=== PATIENT | female | born 1990 | race Caucasian/White ===

== ENCOUNTER → 2017-09-22 | Outpatient (CLI) | payer SELFPAY ==
--- NOTE | 2017-09-22 15:20 | RADIOLOGY REPORT (SQ) ---
EXAM DESCRIPTION: U/S OB 14+ TRNABD 1GES W/O DOP COMPLETED DATE/TIME: 09/22/2017 2:23 pm REASON FOR STUDY: Z34.82 ENCOUNTER FOR SUPRVSN OF NORMAL , SECOND TRIMESTER Z34.82 ENCOUNT ER FOR SUPRVSN OF NORMAL , SECOND TRI COMPARISON: No previous this TECHNIQUE: Static and Dynamic grayscale imaging performed of gravid uterus using transabdominal appr oach. Additional selected color Doppler and spectral images recorded. All stored on PACS. LIMITATIONS: None. FINDINGS: EGA: 16 weeks 6 days GRISEL: 03/03/2018 EFW: 167 g grams PERCENTILE: Not applicable. Fetus less than or equal to 20 weeks gestation. VERENICE: Largest pocket 3 cm PLACENTA: Anterior, low-lying without previa GRADE: I PRESENTATION: Variable ANATOMY: HEART RATE: 141 beats per minute. FOUR CHAMBER HEART: Not well seen THREE VESSEL CORD: Yes. CORD INSERTION: Visualized. KIDNEYS AND BLADDER: Visualized. Appear normal. STOMACH: Visualized. Appears normal. SPINE: Normal as visualized. BRAIN AND LATERAL VENTRICLES: Visualized. Appear normal. OTHER: No other significant finding. MATERNAL ADNEXA: Maternal ovaries not visualized. CERVICAL LENGTH: 3.3 cm Closed. OTHER: No other significant finding. IMPRESSION: LIVING INTRAUTERINE . ESTIMATED GESTATIONAL AGE 16 weeks 6 days NO VISUALIZED ANOMALIES. Trimester of : Second trimester - 13 weeks 1 day to 27 weeks 6 days. TECHNICAL DOCUMENTATION: JOB ID: [id number] [employer]- All Rights Reserved
== END ==
LOC: RAD 13:40
PROVIDERS: ATTEND Nurse Practitioner Women's Health
DX: Z34.82 Encounter for supervision of other normal pregnancy, second trimester (principal)
CPT/HCPCS: 76805

== ENCOUNTER 2017-12-01 11:26 | Outpatient (CLI) | payer SELFPAY ==
[2017-12-01 12:03] LABS: APPEARANCE,URINE CLEAR; BILIRUBIN,URINE NEGATIVE (NEGATIVE); COLOR,URINE STRAW; GLUCOSE, URINE NEGATIVE (NEGATIVE); KETONES,URINE NEGATIVE (NEGATIVE); LEUKOCYTE ESTERASE,URINE TRACE (NEGATIVE); NITRITE,URINE NEGATIVE (NEGATIVE); PROTEIN,URINE NEGATIVE (NEGATIVE); URINE SPECIFIC GRAVITY 1.003; UROBILINOGEN,URINE NEGATIVE mg/dL (<2.0)
[2017-12-01 12:20] LABS: URINE AMPHETAMINES SCREEN NEGATIVE; URINE BARBITURATES SCREEN NEGATIVE; URINE BENZODIAZEPINES SCREEN NEGATIVE; URINE COCAINE SCREEN NEGATIVE; URINE MARIJUANA (THC) SCREEN NEGATIVE; URINE METHADONE SCREEN NEGATIVE; URINE PHENCYCLIDINE SCREEN NEGATIVE
[2017-12-01 12:38] LABS: AMNISURE (ROM) NEGATIVE (NEGATIVE)
--- NOTE | 2017-12-01 14:52 | L&D Progress Notes ---
PROGRESS NOTES Datetime Report Generated by CPN: 12/01/2017 14:52 PROGRESS NOTE Comment: pt came in for labor check for spotting when voiding and irregular crampin, no uc's, FHT nl for gestational age, abd soft, waiting for sono report SIGNATURE SIGNATURE: [id number] Assignment: Higinio MD Gume Signature: with User ID: [email or web address] : with User ID: [email or web address]
--- NOTE | 2017-12-01 14:56 | RADIOLOGY REPORT (SQ) ---
EXAM DESCRIPTION: U/S OB LIMITED COMPLETED DATE/TIME: 12/01/2017 2:36 pm REASON FOR STUDY: 28+5 weeks,spotting,cramping-cervical, placenta lo COMPARISON: OB ultrasound 09/22/2017 TECHNIQUE: Limited transabdominal grayscale ultrasound for evaluation of specific requested obstetri nani parameters. LIMITATIONS: None. FINDINGS: CERVICAL LENGTH: 6 cm in length Closed. FHR: 153 beats per minute beats per minute. PRESENTATION: Transverse OTHER: Largest pocket of amniotic fluid 5.5 cm Placenta anterior, grade 1. No abruption or previa IMPRESSION: LIMITED OBSTETRICAL ULTRASOUND WITH MEASURED PARAMETERS DELINEATED ABOVE. Trimester of : Second trimester - 13 weeks 1 day to 27 weeks 6 days. TECHNICAL DOCUMENTATION: JOB ID: [id number] [employer]- All Rights Reserved
--- NOTE | 2017-12-01 15:07 | L&D Progress Notes ---
PROGRESS NOTES Datetime Report Generated by CPN: 12/01/2017 15:06 PROGRESS NOTE Comment: Had yeast infection x 2, took Monistat OTC, placenta anterior. cx 6.3 Rx given for maternity belt and Terazol, F/U at [facility] or [facility] when insurance is restarted Rev S_S to report FETUS C SIGNATURE: [id number] Assignment: Higinio Dunaway MD Signature: with User ID: [email or web address] : with User ID: [email or web address]
== END 2017-12-01 15:09 | disposition home or self-care (01) ==
LOC: LC 11:26
PROVIDERS: ATTEND Obstetrics & Gynecology Gynecology
PROC: 4A1HXCZ Monitoring of Products of Conception, Cardiac Rate, External Approach (ICD-10-PCS; principal; 2017-12-01)
DX: O26.853 Spotting complicating pregnancy, third trimester (principal); O99.89 Other specified diseases and conditions complicating pregnancy, childbirth and the puerperium; N94.89 Other specified conditions associated with female genital organs and menstrual cycle; Z3A.28 28 weeks gestation of pregnancy
CPT/HCPCS: 76815; 80307; 81001; 84112

== ENCOUNTER 2018-01-25 16:04 | Outpatient (CLI) | payer SELFPAY ==
[2018-01-25 17:02] LABS: APPEARANCE,URINE CLEAR; BILIRUBIN,URINE NEGATIVE (NEGATIVE); COLOR,URINE YELLOW; GLUCOSE, URINE NEGATIVE (NEGATIVE); KETONES,URINE NEGATIVE (NEGATIVE); LEUKOCYTE ESTERASE,URINE SMALL (NEGATIVE); NITRITE,URINE NEGATIVE (NEGATIVE); PROTEIN,URINE NEGATIVE (NEGATIVE); URINE SPECIFIC GRAVITY 1.011; UROBILINOGEN,URINE NEGATIVE mg/dL (<2.0)
[2018-01-25 17:17] LABS: URINE AMPHETAMINES SCREEN NEGATIVE; URINE BARBITURATES SCREEN NEGATIVE; URINE BENZODIAZEPINES SCREEN NEGATIVE; URINE COCAINE SCREEN NEGATIVE; URINE MARIJUANA (THC) SCREEN NEGATIVE; URINE METHADONE SCREEN NEGATIVE; URINE PHENCYCLIDINE SCREEN NEGATIVE
[2018-01-25 17:34] LABS: UR PRO/CREAT RATIO RESULT 0.2 mg/mg (0.0-0.2); URINE CREATININE 52.1 mg/dL (16-327); URINE PROTEIN 11.6 mg/dL (<12)
[2018-01-25 17:43] LABS: ABSOLUTE EOSINOPHILS # (AUTO) 0.2 10^3/uL (0.0-0.6); ABSOLUTE LYMPHOCYTES (AUTO) 2.5 10^3/uL (0.5-4.7); ABSOLUTE MONOCYTES (AUTO) 1.3 10^3/uL (0.1-1.4); ABSOLUTE NEUT (AUTO) 11.4 10^3/uL (1.7-8.2); BASOPHILS % (AUTO) 0.2 % (0-2); EOSINOPHILS % (AUTO) 1.4 % (0-6); HEMATOCRIT 28.2 % (36.0-47.0); HEMOGLOBIN 9.3 g/dL (12.0-15.5); MEAN CORPUSCULAR HEMOGLOBIN 26.1 pg (27.0-33.4); MEAN CORPUSCULAR VOLUME 79 fl (80-97); MONOCYTES % (AUTO) 8.5 % (3-13); PLATELET COUNT 232 10^3/uL (150-450); RED BLOOD COUNT 3.58 10^6/uL (3.72-5.28); RED CELL DISTRIBUTION WIDTH 15.5 % (11.5-14.0); SEGMENTED NEUTROPHILS % (AUTO) 73.9 % (42-78); TOTAL CELLS COUNTED % (AUTO) 100 %; WHITE BLOOD COUNT 15.4 10^3/uL (4.0-10.5)
[2018-01-25 18:07] LABS: ALANINE AMINOTRANSFERASE 27 U/L (9-52); ALBUMIN 3.5 g/dL (3.5-5.0); ALKALINE PHOSPHATASE 133 U/L (38-126); ANION GAP 8 (5-19); ASPARTATE AMINO TRANSFERASE 22 U/L (14-36); BILIRUBIN,DIRECT 0.1 mg/dL (0.0-0.4); BILIRUBIN,TOTAL 0.2 mg/dL (0.2-1.3); BLOOD UREA NITROGEN 6 mg/dL (7-20); CALCIUM 9.1 mg/dL (8.4-10.2); CARBON DIOXIDE 25 mmol/L (22-30); CHLORIDE 103 mmol/L (98-107); GLUCOSE 81 mg/dL (75-110); LDH 515 U/L (313-618); SODIUM 136.1 mmol/L (137-145); TOTAL PROTEIN 6.1 g/dL (6.3-8.2); URIC ACID 4.3 mg/dL (2.5-6.2)
== END 2018-01-25 18:21 | disposition home or self-care (01) ==
LOC: LC 16:04
PROVIDERS: ATTEND Obstetrics & Gynecology
DX: O47.03 False labor before 37 completed weeks of gestation, third trimester (principal); Z3A.36 36 weeks gestation of pregnancy
CPT/HCPCS: 36415; 59025; 80053; 80307; 81001; 82570; 83615; 84156; 84550; 85025

== ENCOUNTER 2018-02-01 11:49 | Outpatient (CLI) | payer SELFPAY ==
--- NOTE | 2018-02-01 11:56 | Non Stress Test Report ---
Non Stress Test Datetime Report Generated by CPN: 02/01/2018 11:55 DEMOGRAPHIC EGA NST: 36.4 INDICATION Indication for Study: Ordered by Provider MONITORING Monitor Explained: Monitor Explained; Test Explained; Patient Verbalized Understanding Time on Monitor: 01/25/2018 16:17 Time off Monitor: 01/25/2018 17:31 NST Duration: 74 NST INTERVENTIONS NST Interventions: PO Hydration; Reposition Patient Physician Notified NST: H.Michael, CNM BABY A: [id number] BABY A Movement : Present Contraction Frequency : x1 FHR Baseline : 145 Accelerations : 15X15 Decelerations : None Variability : Moderate 6-25bpm NST Review: Meets Criteria for Reactive NST NST Review and Verified By : KRISTINA Chaves Results: Reactive NST REPORT Report Trigger: Send Report
[2018-02-01 12:29] LABS: APPEARANCE,URINE CLEAR; BILIRUBIN,URINE NEGATIVE (NEGATIVE); COLOR,URINE YELLOW; GLUCOSE, URINE NEGATIVE (NEGATIVE); KETONES,URINE NEGATIVE (NEGATIVE); LEUKOCYTE ESTERASE,URINE SMALL (NEGATIVE); NITRITE,URINE NEGATIVE (NEGATIVE); PROTEIN,URINE NEGATIVE (NEGATIVE); URINE SPECIFIC GRAVITY 1.009; UROBILINOGEN,URINE NEGATIVE mg/dL (<2.0)
[2018-02-01 12:42] LABS: URINE AMPHETAMINES SCREEN NEGATIVE; URINE BARBITURATES SCREEN NEGATIVE; URINE BENZODIAZEPINES SCREEN NEGATIVE; URINE COCAINE SCREEN NEGATIVE; URINE MARIJUANA (THC) SCREEN NEGATIVE; URINE METHADONE SCREEN NEGATIVE; URINE PHENCYCLIDINE SCREEN NEGATIVE
[2018-02-01 12:47] LABS: UR PRO/CREAT RATIO RESULT 0.3 mg/mg (0.0-0.2); URINE CREATININE 41.1 mg/dL (16-327); URINE PROTEIN 12.2 mg/dL (<12)
[2018-02-01 12:54] LABS: ABSOLUTE EOSINOPHILS # (AUTO) 0.2 10^3/uL (0.0-0.6); ABSOLUTE LYMPHOCYTES (AUTO) 2.1 10^3/uL (0.5-4.7); ABSOLUTE MONOCYTES (AUTO) 0.7 10^3/uL (0.1-1.4); ABSOLUTE NEUT (AUTO) 10.9 10^3/uL (1.7-8.2); BASOPHILS % (AUTO) 0.3 % (0-2); EOSINOPHILS % (AUTO) 1.3 % (0-6); HEMOGLOBIN 8.8 g/dL (12.0-15.5); MEAN CORPUSCULAR HEMOGLOBIN 25.6 pg (27.0-33.4); MEAN CORPUSCULAR HGB CONC 32.6 g/dL (32.0-36.0); MEAN CORPUSCULAR VOLUME 79 fl (80-97); MONOCYTES % (AUTO) 5.2 % (3-13); PLATELET COUNT 228 10^3/uL (150-450); RED BLOOD COUNT 3.44 10^6/uL (3.72-5.28); RED CELL DISTRIBUTION WIDTH 15.7 % (11.5-14.0); SEGMENTED NEUTROPHILS % (AUTO) 78.2 % (42-78); TOTAL CELLS COUNTED % (AUTO) 100 %; WHITE BLOOD COUNT 13.9 10^3/uL (4.0-10.5)
[2018-02-01 13:21] LABS: ALANINE AMINOTRANSFERASE 23 U/L (9-52); ALBUMIN 3.2 g/dL (3.5-5.0); ALKALINE PHOSPHATASE 137 U/L (38-126); ANION GAP 10 (5-19); ASPARTATE AMINO TRANSFERASE 23 U/L (14-36); BILIRUBIN,DIRECT 0.2 mg/dL (0.0-0.4); BILIRUBIN,TOTAL 0.2 mg/dL (0.2-1.3); BLOOD UREA NITROGEN 5 mg/dL (7-20); CALCIUM 8.9 mg/dL (8.4-10.2); CARBON DIOXIDE 24 mmol/L (22-30); CHLORIDE 104 mmol/L (98-107); GLUCOSE 104 mg/dL (75-110); LDH 465 U/L (313-618); POTASSIUM 3.9 mmol/L (3.6-5.0); SODIUM 138.1 mmol/L (137-145); TOTAL PROTEIN 5.9 g/dL (6.3-8.2); URIC ACID 4.8 mg/dL (2.5-6.2)
--- NOTE | 2018-02-01 13:48 | Non Stress Test Report ---
Non Stress Test Datetime Report Generated by CPN: 02/01/2018 13:47 DEMOGRAPHIC EGA NST: 37.4 INDICATION Indication for Study: Ordered by Provider MONITORING Monitor Explained: Monitor Explained; Test Explained; Patient Verbalized Understanding Time on Monitor: 02/01/2018 12:05 Time off Monitor: 02/01/2018 13:41 NST Duration: 96 NST INTERVENTIONS NST Interventions: PO Hydration Physician Notified NST: Dr. Kenny BABY A Movement : Present Contraction Frequency : none FHR Baseline : 135 Accelerations : 15X15 Decelerations : None Variability : Moderate 6-25bpm NST Review: Meets Criteria for Reactive NST NST Review and Verified By : KRISTINA ChavesT Results: Reactive NST REPORT Report Trigger: Send Report
== END 2018-02-01 13:55 | disposition home or self-care (01) ==
LOC: LC 11:49
PROVIDERS: ATTEND Obstetrics & Gynecology
PROC: 4A1HXCZ Monitoring of Products of Conception, Cardiac Rate, External Approach (ICD-10-PCS; principal; 2018-02-01)
DX: O16.3 Unspecified maternal hypertension, third trimester (principal); O99.413 Diseases of the circulatory system complicating pregnancy, third trimester; I47.1 Supraventricular tachycardia; Z3A.37 37 weeks gestation of pregnancy
CPT/HCPCS: 36415; 59025; 80053; 80307; 81001; 82570; 83615; 84156; 84550; 85025

== ENCOUNTER 2018-02-02 13:44 | Outpatient (CLI) | payer SELFPAY ==
[2018-02-02 14:49] LABS: 24 HOUR URINE PROTEIN RESULT 412 mg/day (42-225); URINE PROTEIN 14.7 mg/dL (<12)
--- NOTE | 2018-02-02 16:30 | Non Stress Test Report ---
Non Stress Test Datetime Report Generated by CPN: 02/02/2018 16:29 DEMOGRAPHIC EGA NST: 37.5 INDICATION Indication for Study: Ordered by Provider MONITORING Monitor Explained: Monitor Explained; Test Explained; Patient Verbalized Understanding Time on Monitor: 02/02/2018 13:53 Time off Monitor: 02/02/2018 15:42 NST Duration: 109 NST INTERVENTIONS NST Interventions: PO Hydration; Reposition Patient Physician Notified NST: C.Ferrell, CNM BABY A: [id number] BABY A Movement : Present Contraction Frequency : x1 FHR Baseline : 135 Accelerations : 15X15 Decelerations : None Variability : Moderate 6-25bpm NST Review: Meets Criteria for Reactive NST NST Review and Verified By : KRISTINA Desai Results: Reactive NST REPORT Report Trigger: Send Report
--- NOTE | 2018-02-02 18:46 | PDOC CONSULTATION ---
Consultation Consult Date: 02/02/18 Consult reason:: Tachycardia and history of SVT History of Present Illness Admission Date/PCP: BLANCA SALTER MD Patient complains of: Tachycardia History of Present Illness: JENISE SOARES is a 27 year old female, who claims to be 37 weeks , was admitted to labor and delivery for observation and possible inducing labor. She complained of having tachycardia. Her heart rate was in the 120s. Patient describes history of SVT in the past. She was placed on metoprolol succinate with total dose of 50 mg which she tells me that she tapered herself off. Patient denies any history of ablation. Patient has 5 other live deliveries without any complications except for gestational diabetes and possible mild hypertension in 2 of the live births. Patient describes having mild gestational diabetes during her current . She also describes intermittent high blood pressure reading. Patient tells me that she had some leakage of protein. However I was told by the [employer] physician that it was minimal at 400 mg in 24 hours therefore not considered significant. Patient is no longer being induced and is likely to be discharged. Their concern was whether patient would need to be monitored during delivery. It was felt that patient will benefit from cardiac monitoring during delivery as delivery would be a stress and any SVT if it occurs would need to be treated expeditiously. Past Medical History Pulmonary Medical History: Reports: Asthma Past Surgical History Past Surgical History: Reports: Orthopedic Surgery - rigth leg Social History Information Source: Patient Smoking Status: Never Smoker - Advance Directive Resuscitation Status: Full Code Surrogate healthcare decision maker:: Patient's is the surrogate decision-maker Family History Family History: Reviewed & Not Pertinent. denies: CAD Parental Family History Reviewed: Yes Children Family History Reviewed: Yes Sibling(s) Family History Reviewed.: Yes - No family history of premature coronary artery disease or sudden cardiac in immediate family members Medication/Allergy Home Medications: Vit No.129/Iron/Folic [ One Daily Tablet] 1 tab PO DAILY Metoprolol/Hydrochlorothiazide [Lopressor HCT 50-25 Tablet] 1 each PO DAILY 08/12 Allergies/Adverse Reactions: Penicillins Allergy (Severe, Verified 02/01/18 12:40) Rash, swelling Review of Systems Review of Systems: Please see history of present illness and past medical history as wall. Constitutional: No fever or chills reported. Head : No recent chronic headaches, recent head injury. Eyes: No recent eye pain, diplopia, redness, discharge, acute visual changes. Ears: No recent chronic ear pain, acute hearing loss, ear discharge. Oral cavity: No recent ulcerations, bleeding, oral cavity discomfort. Neck: No recent acute neck pain reported. Hematologic: No recent easy bruising or bleeding or hematologic malignancy reported. Lymphatic: No recent lymphatic malignancy, chronic lymphadenopathy reported yet Cardiovascular system review: See history of present illness. History of palpitations as noted above along with SVT. No history of syncope or near syncope. No chest pains. Respiratory system review: No recent chronic cough, hemoptysis, blood clots in the lungs reported. Mild Shortness of breath on exertion Gastrointestinal system review: Negative for any recent acute or chronic abdominal pain, hematemesis, melena, recent change in bowel habits. Genitourinary system review: No recent acute or chronic hematuria, flank pain, UTI etc. reported. as noted above. Skin system review: Negative for any recent abnormal bruising, no rash, no pruritus reported. Neurologic: No prior history of strokes, mini strokes, seizure disorder. Psychologic: No history of major psychosis or major depression reported. Musculoskeletal: Minor aches and pains reported. No acute joint swelling reported. Endocrine: No recent polyuria, polydipsia, recent heat or cold intolerance. Physical Exam Vital Signs: Intake & Output 02/01/18 02/02/18 02/03/18 06:59 06:59 06:59 Weight 86.9 kg Exam: GENERAL: well-nourished and in no acute distress. Alert and oriented x3 HEAD: Atraumatic, normocephalic. EYES: Pupils equal round and reactive to light, extraocular movements intact, sclera anicteric, conjunctiva are normal. ENT: TMs normal, nares patent, oropharynx clear without exudates. Moist mucous membranes. No oral ulcerations or bleeding gums noted NECK: supple without lymphadenopathy. Trachea is central. No cervical or axillary lymphadenopathy noted. Carotids are 2+, JVD WNL LUNGS: Respiration seems nonlabored, no significant accessory muscle action noted. Breath sounds clear to auscultation bilaterally and equal noted. No wheezes rales or rhonchi noted. No significant dullness noted on percussion. CHEST: Palpation of the chest wall shows no significant chest wall tenderness. No other significant abnormalities noted. HEART: [place] [employer], No PSH, 1/6 GIGI aortic area, 1/6 montemayor systolic murmur mitral area, no rubs, no gallops. ABDOMEN: Consistent with 37 weeks of . Soft, no significant tenderness appreciated, normoactive bowel sounds. No guarding, no rebound. No rigidity noted . EXTREMITIES: Pedal pulses are 2+, no calf tenderness noted. No clubbing or cyanosis. negative pedal edema noted. 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 NEUROLOGICAL: Focused neurological exam showed no significant neurologic deficit. Normal speech, no focal weakness appreciated. PSYCH: Normal mood, normal affect. Judgment and insight within normal limits. SKIN: No significant ecchymosis, skin is noted to be warm. MUSCULOSKELETAL EXAM: No significant acute joint swelling noted. Results Laboratory Results: 02/01/18 13:30 Ur 24 Hour Volume 2800 Ur Total Protein 24 Hr 412 H Assessment & Plan - Diagnosis (1) Supraventricular tachycardia Is this a current diagnosis for this admission?: Yes (2) Gestational hypertension Qualifiers: Trimester: third trimester Qualified Code(s): O13.3 - Gestational [ -induced] hypertension without significant proteinuria, third trimester Is this a current diagnosis for this admission?: Yes (3) Gestational diabetes Qualifiers: Trimester: third trimester Is this a current diagnosis for this admission?: Yes - Notes Notes: Patient gives history of supraventricular tachycardia, currently noted to be in regular rhythm. No EKGs available for review but will order one. Patient will also benefit from a 2D echo if can be obtained prior to discharge or otherwise can be obtained as an outpatient. At this point recommend that patient be placed on metoprolol succinate 25 mg p.o. twice daily. I would recommend that patient have cardiac monitoring during labor and delivery as this is a stress on the heart and could as well precipitated a SVT episode which may need to be taken care of expeditiously. This was related to [employer] physician. If SVT happens, adenosine could be used or IV metoprolol, IV digoxin could also be used if needed. As usual I thank very much for the kind consultation. - Time Time Spent: 30 to 50 Minutes Medications reviewed and adjusted accordingly: Yes
== END 2018-02-02 17:06 | disposition home or self-care (01) ==
LOC: LC 13:44
PROVIDERS: ATTEND Obstetrics & Gynecology
PROC: 4A1HXCZ Monitoring of Products of Conception, Cardiac Rate, External Approach (ICD-10-PCS; principal; 2018-02-02)
DX: O12.13 Gestational proteinuria, third trimester (principal); Z3A.37 37 weeks gestation of pregnancy
CPT/HCPCS: 59025; 84156

== ENCOUNTER 2019-01-01 21:35 | Emergency (ER) | payer MEDICAID ==
--- NOTE | 2019-01-01 22:18 | EKG REPORT ---
SEVERITY:- NORMAL ECG - SINUS RHYTHM : Confirmed by: Araceli Montanez MD 01-Jan-2019 22:17:34
--- NOTE | 2019-01-01 22:48 | ER Document Report ---
ED General - General Chief Complaint: Chest Pain Stated Complaint: CHEST PINCHING Time Seen by Provider: 01/01/19 22:12 Primary Care Provider: BLANCA SALTER MD [Primary Care Provider] - Follow up as needed Notes: Patient is a 28-year-old female presents with complaint of pleuritic chest pain started tonight. She is 29 weeks . Patient says it is mild but it does hurt whenever she takes a deep breath. Is pinpoint over a single location. Also hurts to cough. No recent leg pain or leg swelling. No history of DVT or PE. She does have a history of SVT. No recent runs of SVT. She takes metoprolol as well as aspirin daily. No fevers. No other complaints at this time. TRAVEL OUTSIDE OF THE [place] IN LAST 30 DAYS: No - Related Data Allergies/Adverse Reactions: Penicillins Allergy (Severe, Verified 01/01/19 21:38) Rash, swelling Past Medical History - Social History Smoking Status: Never Smoker Chew tobacco use (# tins/day): No Frequency of alcohol use: None Drug Abuse: None Family History: Reviewed & Not Pertinent. denies: CAD Patient has suicidal ideation: No Patient has homicidal ideation: No Pulmonary Medical History: Reports: Hx Asthma Renal/ Medical History: Denies: Hx Peritoneal Dialysis Past Surgical History: Reports: Hx Orthopedic Surgery - right aka - Immunizations Hx Pneumococcal Vaccination: 09/05/12 Review of Systems - Review of Systems Notes: My Normal Review Basic REVIEW OF SYSTEMS: CONSTITUTIONAL : Denies fever, chills, or sweats. Denies recent illness. EENT: Denies eye, ear, throat, or mouth pain or symptoms. Denies nasal or sinus congestion. CARDIOVASCULAR: Pleuritic chest pain RESPIRATORY: No difficulty breathing. GASTROINTESTINAL: Denies abdominal pain. Denies nausea, vomiting, or diarrhea. GENITOURINARY: Denies difficulty urinating, painful urination, burning, frequency, or blood in urine. FEMALE GENITOURINARY: Denies vaginal bleeding, abnormal or irregular periods. LMP: Currently MUSCULOSKELETAL: Denies neck or back pain or joint pain or swelling. SKIN: Denies rash or skin lesions. HEMATOLOGIC : Denies easy bruising or bleeding. NEUROLOGICAL: Denies altered mental status or loss of consciousness. Denies headache. Denies weakness or paralysis or loss of use of either side. Denies problems with gait or speech. Denies sensory or motor loss. ALL OTHER SYSTEMS REVIEWED AND NEGATIVE. Physical Exam - Vital signs Vitals: Temp Pulse Resp BP Pulse Ox 98.1 F 87 17 134/66 H 100 01/01/19 21:51 01/01/19 21:51 01/01/19 21:51 01/01/19 21:51 01/01/19 21:51 - Notes Notes: General Appearance: Well nourished, alert, cooperative, no acute distress, no obvious discomfort. Well-appearing. Vitals: reviewed, See vital signs table. Head: no swelling or tenderness to the head Eyes: PERRL, EOMI, Conjuctiva clear Mouth: No decreasd moisture Lungs: No wheezing, No rales, No rhonci, No accessory muscle use, good air exchange bilaterally. Heart: Normal rate, Regular rythm, No murmur, no rub Abdomen: Normal BS, soft, No rigidity, No abdominal tenderness, No guarding, no rebound, no abdominal masses, no organomegaly Extremities: Patient has amputated right lower extremity., good pulses in all extremities, no swelling or tenderness in the extremities, trace edema left lower extremity. No pain to palpation of left lower leg.. Skin: warm, dry, appropriate color, no rash Neuro: speech clear, oriented x 3, normal affect, responds appropriately to questions. Course - Re-evaluation Re-evalutation: 01/01/19 23:21 Unfortunately patient's d-dimer is positive. She has pleuritic chest pain during without another obvious cause. Pain is not reproducible palpation. I therefore talked her back and forth with CTA of the chest. I talked about the radiation risk including radiation to breast tissue during . She is understanding of this and agreeable to go forward with the CT scan. 01/02/19 00:13 Contrast bolus of the CTA was suboptimal. Radiologist that they can rule out large PE. Cannot rule out a small subsegmental PE at this time. I did review the images myself. I do not see evidence of a PE either. I talked to the patient at length. Currently her vital signs are completely normal and she looks well. I informed her she has no evidence of large PE on CT scan. Informed her that smaller for emboli or controversial treatment and I do not feel that the benefits of doing further radiological studies out weigh the risks of recurrent radiation to her breast tissue being that she is in third trimester . Recommend that she follow-up with her machine i trimmer this coming week but have a low threshold to return to ER if she starts having severe chest pain, difficulty breathing, or feels that she is worsening any way. Patient agrees with this plan and will be discharged home and agrees with close follow-up precautions. Dictation of this chart was performed using voice recognition software; therefore, there may be some unintended grammatical errors. - Vital Signs Vital signs: Temp Pulse Resp BP Pulse Ox 98.1 F 87 17 134/66 H 100 01/01/19 21:51 01/01/19 21:51 01/01/19 21:51 01/01/19 21:51 01/01/19 21:51 - Laboratory Result Diagrams: 01/01/19 22:41 01/01/19 22:41 Laboratory results interpreted by me: 01/01/19 01/01/19 01/01/19 22:41 22:41 22:41 WBC 11.5 H Hgb 11.2 L Hct 32.6 L Absolute Neutrophils 8.7 H D-Dimer 0.82 H Sodium 135.3 L Creatinine 0.50 L - EKG Interpretation by Me Additional EKG results interpreted by me: 01/01/19 22:47 EKG is reviewed and interpreted by me. EKG shows sinus rhythm with a rate of [address] segment elevation or depression. T wave inversions in lead III. No further T wave inversions. NM interval, QRS duration, QTc intervals are within normal range. Old EKG for comparison is from September 03, 2017. Discharge - Discharge Clinical Impression: Chest pain Qualifiers: Chest pain type: unspecified Qualified Code(s): R07.9 - Chest pain, unspecified Condition: Good Disposition: HOME, SELF-CARE Additional Instructions: Your CT scan did not show evidence of a large or concerning blood clot in your lungs. There is always a possibility of a small blood clot, but this is less likely and your heart rate and oxygenation are normal and therefore the risks of further radiation studies do not out weigh the benefits. At this time I feel you are safe to be discharged home with close follow up with you OB doctor this week. Please have a low threshold to return to the ER if you have difficulty breathing, fast heart rate, worsening pain, or feel unwell. Referrals: BLANCA SALTER MD [Primary Care Provider] - Follow up in 3-5 days
[2019-01-01 22:54] LABS: ABSOLUTE EOSINOPHILS # (AUTO) 0.2 10^3/uL (0.0-0.6); ABSOLUTE MONOCYTES (AUTO) 0.6 10^3/uL (0.1-1.4); ABSOLUTE NEUT (AUTO) 8.7 10^3/uL (1.7-8.2); BASOPHILS % (AUTO) 0.2 % (0-2); EOSINOPHILS % (AUTO) 1.9 % (0-6); HEMATOCRIT 32.6 % (36.0-47.0); HEMOGLOBIN 11.2 g/dL (12.0-15.5); LYMPHOCYTES % (AUTO) 17.2 % (13-45); MEAN CORPUSCULAR HEMOGLOBIN 28.8 pg (27.0-33.4); MEAN CORPUSCULAR HGB CONC 34.3 g/dL (32.0-36.0); MEAN CORPUSCULAR VOLUME 84 fl (80-97); MONOCYTES % (AUTO) 5.4 % (3-13); PLATELET COUNT 226 10^3/uL (150-450); RED BLOOD COUNT 3.88 10^6/uL (3.72-5.28); RED CELL DISTRIBUTION WIDTH 13.8 % (11.5-14.0); SEGMENTED NEUTROPHILS % (AUTO) 75.3 % (42-78); TOTAL CELLS COUNTED % (AUTO) 100 %; WHITE BLOOD COUNT 11.5 10^3/uL (4.0-10.5)
[2019-01-01 23:14] LABS: APPEARANCE,URINE CLEAR; BILIRUBIN,URINE NEGATIVE (NEGATIVE); COLOR,URINE STRAW; GLUCOSE, URINE NEGATIVE (NEGATIVE); KETONES,URINE NEGATIVE (NEGATIVE); LEUKOCYTE ESTERASE,URINE NEGATIVE (NEGATIVE); NITRITE,URINE NEGATIVE (NEGATIVE); PROTEIN,URINE NEGATIVE (NEGATIVE); URINE SPECIFIC GRAVITY 1.009; UROBILINOGEN,URINE NEGATIVE mg/dL (<2.0)
[2019-01-01 23:14] LABS: ALANINE AMINOTRANSFERASE 25 U/L (9-52); ALBUMIN 3.9 g/dL (3.5-5.0); ALKALINE PHOSPHATASE 91 U/L (38-126); ANION GAP 8 (5-19); ASPARTATE AMINO TRANSFERASE 23 U/L (14-36); BILIRUBIN,DIRECT 0.1 mg/dL (0.0-0.4); BILIRUBIN,TOTAL 0.2 mg/dL (0.2-1.3); BLOOD UREA NITROGEN 9 mg/dL (7-20); CALCIUM 9.8 mg/dL (8.4-10.2); CARBON DIOXIDE 26 mmol/L (22-30); CHLORIDE 101 mmol/L (98-107); GLUCOSE 85 mg/dL (75-110); POTASSIUM 3.9 mmol/L (3.6-5.0); SODIUM 135.3 mmol/L (137-145); TOTAL PROTEIN 6.8 g/dL (6.3-8.2)
[2019-01-01] MEDS ORDERED: NORMAL SALINE 1000 ML 1,000 ML IV ONE (23:16)
--- NOTE | 2019-01-01 23:24 | RADIOLOGY REPORT (SQ) ---
EXAM DESCRIPTION: XR CHEST 1 VIEW COMPLETED DATE/TME: 01/01/2019 22:21 CLINICAL HISTORY: 28 years, Female, cp COMPARISON: None. NUMBER OF VIEWS: 1 TECHNIQUE: Portable chest LIMITATIONS: None. FINDINGS: Heart size is normal. Lungs are clear. No pneumothorax IMPRESSION: Negative chest copyright 2011 [employer]- All Rights Reserved
--- NOTE | 2019-01-01 23:57 | RADIOLOGY REPORT (SQ) ---
EXAM DESCRIPTION: CT CHEST ANGIOGRAPHY WITHOUT THEN WITH IV CONTRAST COMPLETED DATE/TME: 01/01/2019 23:16 CLINICAL HISTORY: 28 years, Female, pleuritic chest pain COMPARISON: None. TECHNIQUE: 507 Images stored on PACS. All CT scanners at this facility use dose modulation, iterative reconstruction, and/or weight based dosing when appropriate to reduce radiation dose to as low as reasonably achievable (ALARA). Axial CTA images with coronal and sagittal MIPS reconstructions [facility]: Dose Right [facility]: CareDose [facility]: Dose Right [facility]: Teradose 4D [facility]: [employer] LIMITATIONS: None. FINDINGS: Nearly nondiagnostic exam due to contrast bolus. No large or central pulmonary most. Evaluation of the remaining pulmonary arterial tree is nondiagnostic. Negative for thoracic aortic aneurysm or dissection. Heart and pericardium are unremarkable. No mediastinal or hilar adenopathy. Limited evaluation of the upper abdomen shows splenomegaly at 14 cm. Postcholecystectomy changes. Osseous structures are grossly intact. No pneumothorax. The visualized airways are patent. Lungs are clear IMPRESSION: Significantly suboptimal contrast bolus limits the exam. No large or central PE. Negative for thoracic aortic aneurysm or dissection. The lungs are clear TECHNICAL DOCUMENTATION: Quality ID # [id number]: Final reports with documentation of one or more dose reduction techniques (e.g., Automated exposure control, adjustment of the mA and/or kV according to patient size, use of iterative reconstruction technique) copyright 2011 [employer]- All Rights Reserved
[2019-01-02 00:34] VITALS: BP 109/77
== END 2019-01-02 00:41 | disposition home or self-care (01) ==
LOC: ER 21:35
DX: O26.893 Other specified pregnancy related conditions, third trimester (principal); R07.81 Pleurodynia; R79.1 Abnormal coagulation profile; O99.413 Diseases of the circulatory system complicating pregnancy, third trimester; I47.1 Supraventricular tachycardia; O99.513 Diseases of the respiratory system complicating pregnancy, third trimester; J45.909 Unspecified asthma, uncomplicated; Z79.899 Other long term (current) drug therapy; Z79.82 Long term (current) use of aspirin; Z3A.29 29 weeks gestation of pregnancy
CPT/HCPCS: 93005; 99284; 96360; 36415; 85025; 80053; 81001; 84484; 85379; 71045; 71275; 93010; J7030

== ENCOUNTER 2020-11-07 17:29 | Emergency (ER) | payer SELFPAY ==
--- NOTE | 2020-11-07 18:32 | ER Document Report ---
ED Medical Screen (RME) - General Chief Complaint: Headache Stated Complaint: DIZZINESS/BLURRED VISION/PRESSURE BEHIND EYES Primary Care Provider: JOSÉ TREVINO DO [Primary Care Provider] - Follow up as needed TRAVEL OUTSIDE OF THE [place] IN LAST 30 DAYS: No - HPI Notes: 11/07/20 18:31 Rapid Medical Exam HPI: This is a 29-year-old female who presents with headache x2 weeks. Today she developed some blurry vision and worsening bilateral eye pain on both side. His vision returned to normal. Patient has photophobia and nausea associated with it. She has a history of migraines but says this is completely different than her prior. Headache was gradual onset. No injury or trauma. Of note she does mention that she is very thirsty associated with this headache. No known history of pituitary adenomas or diabetes. No treatments tried. No other neuro deficits. No fevers. No neck stiffness. She has associated bilateral eye pressure and pain Physical Exam: GENERAL: Well-appearing, well-nourished and in no acute distress. HEAD: Atraumatic, normocephalic. ENT: Moist mucous membranes. RESP: Respirations even and unlabored CV- Regular rate. NEURO: No focal neurological deficits. Moves all extremities spontaneously and on command. My involvement in this patients care was limited to a rapid initial assessment. A comprehensive ED assessment and evaluation of the patient, analysis of test results, treatment, and completion of the medical decision making process will be performed by other ER providers. - Related Data Allergies/Adverse Reactions: Penicillins Allergy (Severe, Verified 01/01/19 21:38) Rash, swelling Home Medications: propanolol, Past Medical History - Social History Frequency of alcohol use: None Drug Abuse: None Pulmonary Medical History: Reports: Hx Asthma Renal/ Medical History: Denies: Hx Peritoneal Dialysis Past Surgical History: Reports: Hx Orthopedic Surgery - right aka Physical Exam - Vital signs Vitals: Temp Pulse Resp BP Pulse Ox 98.1 F 82 18 125/80 99 11/07/20 17:35 11/07/20 17:35 11/07/20 17:35 11/07/20 17:35 11/07/20 17:35 Course - Vital Signs Vital signs: Temp Pulse Resp BP Pulse Ox 98.1 F 82 18 125/80 99 11/07/20 17:35 11/07/20 17:35 11/07/20 17:35 11/07/20 17:35 11/07/20 17:35 Doctor's Discharge - Discharge Referrals: JOSÉ TREVINO DO [Primary Care Provider] - Follow up as needed
--- NOTE | 2020-11-07 18:55 | RADIOLOGY REPORT (SQ) ---
EXAM DESCRIPTION: CT HEAD WITHOUT IMAGES COMPLETED DATE/TIME: 11/07/2020 6:45 pm REASON FOR STUDY: worst [place] of life, bilat eye pain COMPARISON: 2008 TECHNIQUE: Axial images acquired through the brain without intravenous contrast. Images reviewed wi th bone, brain and subdural windows. Additional sagittal and coronal reconstructions were generated. Images stored on PACS. All CT scanners at this facility use dose modulation, iterative reconstruction, and/or weight based d osing when appropriate to reduce radiation dose to as low as reasonably achievable (ALARA). [facility]: Dose Right [facility]: CareDose [facility]: Dose Right [facility]: Teradose 4D [facility]: [employer] RADIATION DOSE: CT Rad equipment meets quality standard of care and radiation dose reduction techniq ues were employed. CTDIvol: 53.2 mGy. DLP: 1044 mGy-cm. mGy. LIMITATIONS: None. FINDINGS: VENTRICLES: Normal size and contour. CEREBRUM: No masses. No hemorrhage. No midline shift. No evidence for acute infarction. Normal gra y/white matter differentiation. No areas of low density in the white matter. CEREBELLUM: No masses. No hemorrhage. No alteration of density. No evidence for acute infarction. EXTRAAXIAL SPACES: No fluid collections. No masses. ORBITS AND GLOBE: No intra- or extraconal masses. Normal contour of globe without masses. CALVARIUM: No fracture. PARANASAL SINUSES: No fluid or mucosal thickening. SOFT TISSUES: No mass or hematoma. OTHER: No other significant finding. IMPRESSION: NORMAL BRAIN CT WITHOUT CONTRAST. EVIDENCE OF ACUTE STROKE: NO. COMMENT: Quality ID # [id number]: Final reports with documentation of one or more dose reduction techniques (e.g., Automated exposure control, adjustment of the mA and/or kV according to patient size, use of iterative reconstruction technique) TECHNICAL DOCUMENTATION: JOB ID: [id number] 2010 [employer]- All Rights Reserved Reading location - IP/workstation name: [email or web address]
[2020-11-07 19:47] LABS: ABSOLUTE EOSINOPHILS # (AUTO) 0.1 10^3/uL (0.0-0.6); ABSOLUTE LYMPHOCYTES (AUTO) 1.9 10^3/uL (0.5-4.7); ABSOLUTE MONOCYTES (AUTO) 0.3 10^3/uL (0.1-1.4); ABSOLUTE NEUT (AUTO) 5.8 10^3/uL (1.7-8.2); BASOPHILS % (AUTO) 0.4 % (0-2); EOSINOPHILS % (AUTO) 1.7 % (0-6); HEMATOCRIT 37.9 % (36.0-47.0); HEMOGLOBIN 13.4 g/dL (12.0-15.5); LYMPHOCYTES % (AUTO) 22.9 % (13-45); MEAN CORPUSCULAR HGB CONC 35.3 g/dL (32.0-36.0); MEAN CORPUSCULAR VOLUME 82 fl (80-97); PLATELET COUNT 289 10^3/uL (150-450); RED BLOOD COUNT 4.61 10^6/uL (3.72-5.28); RED CELL DISTRIBUTION WIDTH 13.4 % (11.5-14.0); TOTAL CELLS COUNTED % (AUTO) 100 %; WHITE BLOOD COUNT 8.1 10^3/uL (4.0-10.5)
[2020-11-07 19:55] LABS: APPEARANCE,URINE CLEAR; BILIRUBIN,URINE NEGATIVE (NEGATIVE); COLOR,URINE STRAW; GLUCOSE, URINE NEGATIVE (NEGATIVE); KETONES,URINE NEGATIVE (NEGATIVE); LEUKOCYTE ESTERASE,URINE TRACE (NEGATIVE); NITRITE,URINE NEGATIVE (NEGATIVE); PROTEIN,URINE NEGATIVE (NEGATIVE); UROBILINOGEN,URINE NEGATIVE mg/dL (<2.0)
[2020-11-07 20:09] LABS: ANION GAP 9 (5-19); BLOOD UREA NITROGEN 17 mg/dL (7-20); CALCIUM 9.9 mg/dL (8.4-10.2); CARBON DIOXIDE 28 mmol/L (22-30); CHLORIDE 102 mmol/L (98-107); GLUCOSE 103 mg/dL (75-110); POTASSIUM 4.5 mmol/L (3.6-5.0)
[2020-11-07] MEDS ORDERED: METOCLOPRAMIDE HCL INJ/PF 10 MG/2 ML SDV IV ONE (23:15)
[2020-11-07] MEDS ORDERED: KETOROLAC TROMETHAMINE INJ/PF 30 MG/1 ML SDV IV ONE (23:15)
[2020-11-07] MEDS ORDERED: DIPHENHYDRAMINE HCL 50 MG/ML VIAL IV ONE (23:15)
--- NOTE | 2020-11-07 23:20 | ER Document Report ---
ED Headache - General Chief Complaint: Headache Stated Complaint: DIZZINESS/BLURRED VISION/PRESSURE BEHIND EYES Time Seen by Provider: 11/07/20 22:56 Primary Care Provider: JOSÉ TREVINO DO [Primary Care Provider] - Follow up as needed TRAVEL OUTSIDE OF THE [place] IN LAST 30 DAYS: No - HPI Notes: Patient is a 29 y/o female with a hx of migraine headaches who presents with an intermittent headache for the past two weeks. She describes her headache as bilateral retroorbital that is squeezing in sensation. Patient states she was driving earlier today when she became dizzy with blurred vision. Patient states these symptoms have since improved but concerned her causing her to come to the ED. She reports photophobia but denies phonophobia, nausea, and vomiting. She states this headache is different from her typical migraines. Patient has a hx of SVT and osteogenesis sarcoma. - Related Data Allergies/Adverse Reactions: Penicillins Allergy (Severe, Verified 01/01/19 21:38) Rash, swelling Home Medications: propanolol, Past Medical History - General Information source: Patient - Social History Smoking Status: Former Smoker Frequency of alcohol use: None Drug Abuse: None Family History: Reviewed & Not Pertinent. denies: CAD Patient has homicidal ideation: No Pulmonary Medical History: Reports: Hx Asthma Renal/ Medical History: Denies: Hx Peritoneal Dialysis Past Surgical History: Reports: Hx Orthopedic Surgery - right aka - Immunizations Hx Pneumococcal Vaccination: 09/05/12 Review of Systems - Review of Systems Constitutional: No symptoms reported EENT: See HPI Cardiovascular: No symptoms reported Respiratory: No symptoms reported Gastrointestinal: No symptoms reported Genitourinary: No symptoms reported Female Genitourinary: No symptoms reported Musculoskeletal: No symptoms reported Skin: No symptoms reported Hematologic/Lymphatic: No symptoms reported Neurological/Psychological: See HPI Physical Exam - Vital signs Vitals: Temp Pulse Resp BP Pulse Ox 98.1 F 82 18 125/80 99 11/07/20 17:35 11/07/20 17:35 11/07/20 17:35 11/07/20 17:35 11/07/20 17:35 - Notes Notes: PHYSICAL EXAMINATION: VITALS: Vitals reviewed and within normal limits. GENERAL: Well-appearing, well-nourished and in no acute distress. HEAD: Atraumatic, normocephalic. EYES: Pupils equal, round, and reactive to light, extraocular movements intact, sclera anicteric, conjunctiva are normal. ENT: Nares patent. Moist mucous membranes. Oropharynx clear without exudates. NECK: Normal range of motion, supple without lymphadenopathy. LUNGS: Breath sounds clear to auscultation bilaterally and equal. No wheezes, rales, or rhonchi. HEART: Regular, rate, and rhythm without murmurs. ABDOMEN: Soft, nontender, normoactive bowel sounds. No guarding, no rebound. No masses appreciated. EXTREMITIES: Normal range of motion, no pitting or edema. No cyanosis. NEUROLOGICAL: Face symmetric. Tongue protrudes midline. Extraocular motions intact. Pupils are 2 mm and equally reactive. Normal speech, normal gait. 5 out of 5 strength in both the distal and proximal upper and lower extremities bilaterally. Sensation is grossly intact throughout. Finger to nose testing normal. Pronator drift normal. PSYCH: Normal mood, normal affect. SKIN: Warm, Dry, normal turgor, no rashes or lesions noted. - HEENT Visual acuity- Right eye: 20/50 Visual acuity- Left eye: 20/25 Visual acuity- Both eyes: 20/30 Corrective lenses worn: No Course - Re-evaluation Re-evalutation: Presentation of a headache that appears to be most consistent with tension versus migrainous type headache. Headache was not maximal in onset, patient has no focal neurologic deficits, no nuchal rigidity, vital signs within normal limits, and patient is overall well in appearance. Based on clinical history and examination I do not suspect an acute subarachnoid hemorrhage, dural venous sinus thrombosis, acute meningitis, or intercranial mass. CBC and BMP are un remarkable and within normal limits. UA shows trace leukocyte esterase but is otherwise unremarkable. Urine culture ordered. Urine hCG is negative. Head CT is negative as well. Will proceed with headache cocktail and reassess. 11/08/20 00:45 Patient reports significant improvement after headache cocktail. I advised that the patient follow up with her PCP concerning her migraines and possibly being placed on preventative medication. Return precautions given. Patient will be discharged home. Patient understands and is in agreement with the plan. - Vital Signs Vital signs: Temp Pulse Resp BP Pulse Ox 98 F 81 16 108/63 100 11/08/20 00:54 11/08/20 00:54 11/08/20 00:54 11/08/20 00:54 11/08/20 00:54 - Laboratory Results Result Diagrams: 11/07/20 19:33 11/07/20 19:33 Laboratory Results Interpreted: 11/07/20 19:33 Ur Leukocyte Esterase TRACE H Critical Laboratory Results Reviewed: No Critical Results - Radiology Results Critical Radiology Results Reviewed: No Critical Results Discharge - Discharge Clinical Impression: Migraine Qualifiers: Migraine type: unspecified Status migrainosus presence: without status migrainosus Intractability: not intractable Qualified Code(s): G43.909 - Migraine, unspecified, not intractable, without status migrainosus Condition: Stable Disposition: HOME, SELF-CARE Additional Instructions: You have been seen in the Emergency Department (ED) for a headache. Please use Tylenol (acetaminophen) or Motrin (ibuprofen) as needed for symptoms, but only as written on the box. As we have discussed, please follow up with your primary care doctor as soon as possible regarding today's ED visit and your headache symptoms. Call your doctor or return to the ED if you have a worsening headache, sudden and severe headache, confusion, slurred speech, facial droop, weakness or numbness in any arm or leg, extreme fatigue, or other symptoms that concern you. Referrals: JOSÉ TREVINO DO [Primary Care Provider] - Follow up as needed
[2020-11-08 00:55] VITALS: BP 108/63
== END 2020-11-08 00:54 | disposition home or self-care (01) ==
LOC: ER 17:29
DX: G43.909 Migraine, unspecified, not intractable, without status migrainosus (principal); H53.149 Visual discomfort, unspecified; J45.909 Unspecified asthma, uncomplicated; I47.1 Supraventricular tachycardia; Z79.899 Other long term (current) drug therapy; Z87.891 Personal history of nicotine dependence; Z88.0 Allergy status to penicillin
CPT/HCPCS: 99285; 96374; 96375; 36415; 87086; 85025; 81025; 80048; 81001; 70450; J1200; J1885; J2765